=== PATIENT | female | born 1955 | race Caucasian/White ===

== ENCOUNTER 2017-06-19 15:05 | Emergency (ER) | payer BC ==
[~2017-06-19] VITALS: Wt 83.0 kg
[2017-06-19] MEDS ORDERED: LISINOPRIL20 MG PO (15:14)
[2017-06-19] MEDS ORDERED: CITALOPRAM HBR10 MG PO (15:15)
[2017-06-19] MEDS ORDERED: ALENDRONATE SOD70 MG PO (15:15)
[2017-06-19] MEDS ORDERED: NORCO 325 MG-51 TA1 PO (17:14)
[2017-06-19 18:30] VITALS: BP 129/72
== END 2017-06-19 18:36 | disposition home or self-care (01) ==
LOC: ED 15:05
DX: S42.292A Other displaced fracture of upper end of left humerus, initial encounter for closed fracture (principal); W01.10XA Fall on same level from slipping, tripping and stumbling with subsequent striking against unspecified object, initial encounter; Y92.008 Other place in unspecified non-institutional (private) residence as the place of occurrence of the external cause; I10 Essential (primary) hypertension; F41.9 Anxiety disorder, unspecified; M81.0 Age-related osteoporosis without current pathological fracture; Z82.49 Family history of ischemic heart disease and other diseases of the circulatory system
CPT/HCPCS: A4565; J1170; J7030

== ENCOUNTER → 2017-08-30 | Outpatient (CLI) | payer BC ==
[~2017-08-30] MED LIST: ALENDRONATE SOD70 MG PO; CITALOPRAM HBR10 MG PO; LISINOPRIL20 MG PO; NORCO 325 MG-51 TA1 PO
== END ==
LOC: LAB 07:01
PROVIDERS: Family Medicine
DX: Z01.419 Encounter for gynecological examination (general) (routine) without abnormal findings (principal)

== ENCOUNTER 2018-12-05 15:40 | Emergency (ER) | payer BC ==
[~2018-12-05] VITALS: Ht 172.7 cm; Wt 77.3 kg
[2018-12-05] MEDS ORDERED: PRAMIPEXOLE D0.25 MG PO (16:47)
[2018-12-05 18:19] VITALS: BP 129/77
== END 2018-12-05 18:25 | disposition home or self-care (01) ==
LOC: ED 15:40
DX: S09.90XA Unspecified injury of head, initial encounter (principal); I10 Essential (primary) hypertension; W18.30XA Fall on same level, unspecified, initial encounter; Y92.481 Parking lot as the place of occurrence of the external cause; Y99.0 Civilian activity done for income or pay
CPT/HCPCS: 15973; L0172

== ENCOUNTER → 2019-01-03 | Outpatient (CLI) | payer BC ==
[2018-12-05 18:19] VITALS: BP 129/77
[~2019-01-03] MED LIST changes: +PRAMIPEXOLE D0.25 MG PO
== END ==
LOC: MAMMO 15:10
DX: Z12.31 Encounter for screening mammogram for malignant neoplasm of breast (principal); Z13.820 Encounter for screening for osteoporosis; M85.852 Other specified disorders of bone density and structure, left thigh; M85.851 Other specified disorders of bone density and structure, right thigh

== ENCOUNTER → 2019-11-22 | Outpatient (CLI) | payer BC | LOC: RAD 15:29 | DX: R10.2 Pelvic and perineal pain (principal); R10.31 Right lower quadrant pain ==

== ENCOUNTER → 2019-12-10 | Outpatient (CLI) | payer BC | LOC: LAB 17:27 | DX: R05 Cough (principal); R50.9 Fever, unspecified ==

== ENCOUNTER → 2019-12-22 | Outpatient (CLI) | payer BC ==
[2019-12-22 07:53] LABS: ALBUMIN 4.1 g/dL (3.4-4.8); POTASSIUM 4.5 mmol/L (3.5-5.1)
[2019-12-22 07:54] LABS: CALCIUM 8.9 mg/dL (8.3-10.5)
[2019-12-22 07:56] LABS: TOTAL PROTEIN 7.5 g/dL (6.2-8.1)
[2019-12-22 07:57] LABS: TOTAL BILIRUBIN 0.4 mg/dL (0.2-1.2)
== END ==
LOC: LAB 07:08
PROVIDERS: Family Medicine
DX: E78.5 Hyperlipidemia, unspecified (principal); R73.9 Hyperglycemia, unspecified

== ENCOUNTER → 2021-02-04 | Outpatient (CLI) | payer BC | LOC: RAD 07:17 → MAMMO 07:17 | DX: Z13.820 Encounter for screening for osteoporosis (principal); Z12.31 Encounter for screening mammogram for malignant neoplasm of breast; M85.80 Other specified disorders of bone density and structure, unspecified site; Z87.39 Personal history of other diseases of the musculoskeletal system and connective tissue ==

== ENCOUNTER → 2021-02-19 | Outpatient (REF) | LOC: LAB 12:12 | DX: R73.9 Hyperglycemia, unspecified (principal) ==

== ENCOUNTER → 2021-05-21 | Day surgery (SDC) | payer BC | LOC: MSO 08:13 | DX: Z12.11 Encounter for screening for malignant neoplasm of colon (principal); Z79.899 Other long term (current) drug therapy; F41.9 Anxiety disorder, unspecified; G25.81 Restless legs syndrome; M85.80 Other specified disorders of bone density and structure, unspecified site | CPT/HCPCS: 00812; J2704; J7120 ==

== ENCOUNTER → 2023-02-11 | Outpatient (CLI) | payer MEDICARE ==
[2023-02-14 15:31] LABS: ALBUMIN 4.5 g/dL (3.4-4.8); POTASSIUM 5.1 mmol/L (3.5-5.1)
[2023-02-14 15:32] LABS: CALCIUM 9.9 mg/dL (8.3-10.5)
[2023-02-14 15:34] LABS: TOTAL PROTEIN 7.5 g/dL (6.2-8.1)
[2023-02-14 15:35] LABS: TOTAL BILIRUBIN 0.4 mg/dL (0.2-1.2)
== END ==
LOC: LAB 08:28
PROVIDERS: Family Medicine
DX: Z00.00 Encounter for general adult medical examination without abnormal findings (principal); Z13.6 Encounter for screening for cardiovascular disorders; Z11.59 Encounter for screening for other viral diseases; Z13.89 Encounter for screening for other disorder; Z12.31 Encounter for screening mammogram for malignant neoplasm of breast; Z13.31 Encounter for screening for depression; Z71.89 Other specified counseling

== ENCOUNTER → 2023-03-04 | Outpatient (CLI) | payer MEDICARE | LOC: CARDREHAB 02-25 13:38 | DX: Z00.00 Encounter for general adult medical examination without abnormal findings (principal); I10 Essential (primary) hypertension; E78.5 Hyperlipidemia, unspecified | CPT/HCPCS: A9500; J2785 ==

== ENCOUNTER 2023-07-26 08:14 | Outpatient (RCR) | payer MEDICARE ==
[~2023-07-26 08:14] MED LIST changes: +CEPHALEXIN500 M1 PO
== END 2023-08-12 17:22 | disposition home or self-care (01) ==
LOC: OPPGERO 08:14
DX: F33.9 Major depressive disorder, recurrent, unspecified (principal); F41.9 Anxiety disorder, unspecified

== ENCOUNTER → 2023-07-27 | Outpatient (CLI) | payer MEDICARE ==
[2023-07-27 09:59] LABS: POTASSIUM 4.4 mmol/L (3.5-5.1)
[2023-07-27 10:00] LABS: CALCIUM 10.1 mg/dL (8.3-10.5)
== END ==
LOC: LAB 08:15
PROVIDERS: Family Medicine
DX: N18.2 Chronic kidney disease, stage 2 (mild) (principal)

== ENCOUNTER → 2023-09-07 | Outpatient (CLI) | payer MEDICARE ==
[2023-09-07 21:52] LABS: CREATININE OTHER SOURCE 49 mg/dL (63-166)
== END ==
LOC: LAB 08:55
PROVIDERS: Family Medicine
DX: Z00.00 Encounter for general adult medical examination without abnormal findings (principal); Z11.59 Encounter for screening for other viral diseases; Z13.89 Encounter for screening for other disorder; Z13.6 Encounter for screening for cardiovascular disorders; Z12.31 Encounter for screening mammogram for malignant neoplasm of breast; Z13.31 Encounter for screening for depression; Z71.89 Other specified counseling; I10 Essential (primary) hypertension; E78.5 Hyperlipidemia, unspecified

== ENCOUNTER → 2023-09-14 | Outpatient (CLI) | payer MEDICARE | LOC: RAD 09:12 → MAMMO 10:00 | DX: Z00.00 Encounter for general adult medical examination without abnormal findings (principal); Z12.31 Encounter for screening mammogram for malignant neoplasm of breast; M85.89 Other specified disorders of bone density and structure, multiple sites ==

== ENCOUNTER → 2023-09-14 | Outpatient (CLI) | payer MEDICARE | LOC: MAMMO 09:14 | DX: Z00.00 Encounter for general adult medical examination without abnormal findings (principal); Z12.31 Encounter for screening mammogram for malignant neoplasm of breast ==

== ENCOUNTER 2023-10-14 12:47 | Outpatient (RCR) | payer MEDICARE | END 2023-11-11 15:04 | LOC: OPPGERO 12:47 | DX: F33.9 Major depressive disorder, recurrent, unspecified (principal); F41.9 Anxiety disorder, unspecified ==

== ENCOUNTER 2023-11-15 09:00 | Outpatient (RCR) | payer MEDICARE | END 2023-12-14 17:32 | disposition home or self-care (01) | LOC: OPPGERO 09:00 | DX: F33.1 Major depressive disorder, recurrent, moderate (principal); F41.9 Anxiety disorder, unspecified ==

== ENCOUNTER 2023-12-15 09:00 | Outpatient (RCR) | payer MEDICARE | END 2024-01-12 09:48 | disposition home or self-care (01) | LOC: OPPGERO 09:00 | DX: F33.1 Major depressive disorder, recurrent, moderate (principal); F41.9 Anxiety disorder, unspecified ==

== ENCOUNTER → 2024-07-30 | Outpatient (CLI) | payer MEDICARE ==
[~2024-07-30] VITALS: Ht 172.7 cm; Wt 86.8 kg
== END ==
LOC: AMSURD 10:04
DX: R55 Syncope and collapse (principal)